=== PATIENT | male | born 1970 | race Caucasian/White ===

== ENCOUNTER 2020-03-03 12:11 | Emergency (ER) | payer SELFPAY ==
[~2020-03-03] VITALS: Ht 185.4 cm; Wt 63.5 kg
--- NOTE | 2020-03-03 13:17 | NUR ---
CALLED, NO ANSWER
[2020-03-03] MEDS ORDERED: ONDANSETRON HCL INJ 2MG/ML 2ML 2 MG/ML VIAL IV STA (14:04)
[2020-03-03] MEDS ORDERED: PANTOPRAZOLE 40 MG 10ML VIAL IV STA (14:04)
[2020-03-03] MEDS ORDERED: SODIUM CHLORIDE 0.9% 1000ML 1,000 ML IV STA (14:04)
[2020-03-03 14:13] LABS: BASOPHILS # (AUTO) 0.1 (0.0-0.1); BASOPHILS % 0.6 % (0.0-1.0); EOSINOPHILS % 0.3 % (0.0-6.0); HEMATOCRIT 46.1 % (38.2-49.6); HEMOGLOBIN 15.7 g/dL (14.0-18.0); LYMPHOCYTES % 31.6 % (18.0-39.1); MEAN CORPUSCULAR HEMOGLOBIN 30.5 pg (28-32); MEAN CORPUSCULAR HGB CONC 34.1 g/dL (31-35); MEAN CORPUSCULAR VOLUME 89.5 fL (81-99); MONOCYTES % 10.8 % (4.4-11.3); NEUTROPHILS # (AUTO) 5.3 (2.1-6.9); NEUTROPHILS % 55.6 % (38.7-80.0); PLATELET COUNT 256 x10e3/uL (140-360); RED BLOOD COUNT 5.15 x10e6/uL (4.3-5.7); RED CELL DISTRIBUTION WIDTH 12.9 % (11.7-14.4)
[2020-03-03] MEDS ORDERED: ASPIRIN 81 MG CHEW TAB PO ONE (14:15)
[2020-03-03 14:18] LABS: BILIRUBIN,URINE NEGATIVE (NEGATIVE); CLARITY,URINE CLEAR (CLEAR); COLOR,URINE YELLOW (YELLOW); KETONES,URINE 1+ (NEGATIVE); LEUKOCYTE ESTERASE ,URINE NEGATIVE (NEGATIVE); NITRITE,URINE NEGATIVE (NEGATIVE); PROTEIN,URINE DIPSTICK 1+ (NEGATIVE); URINE UROBILINOGEN 1 mg/dL (0.2 - 1)
[2020-03-03 14:29] LABS: BACTERIA,URINE MODERATE /HPF
[2020-03-03 14:32] LABS: INR 0.92; PARTIAL THROMBOPLASTIN TIME 24.1 seconds (23.8-35.5); PROTHROMBIN TIME 12.8 seconds (11.9-14.5)
--- NOTE | 2020-03-03 14:33 | Diagnostic Imaging Report ---
Examination: Single AP view of the chest. COMPARISON: None. INDICATION: Chest pain DISCUSSION: Lines/tubes: None. Lungs: The lungs are well inflated and clear. No pneumonia or pulmonary edema. Pleura: No pleural effusion or pneumothorax. Heart and mediastinum: The heart and the mediastinum are unremarkable. Bones and soft tissues: No acute bony abnormalities. IMPRESSION: 1. No acute cardiopulmonary abnormalities. Signed by: Dr. Clinton Murphy M.D. on 03/03/2020 2:29 PM
[2020-03-03 14:43] LABS: ALANINE AMINOTRANSFERASE 23 IU/L (0-55); ALBUMIN 3.9 g/dL (3.5-5.0); ALKALINE PHOSPHATASE 118 IU/L (40-150); ANION GAP 26.6 mmol/L (8-16); BLOOD UREA NITROGEN 9 mg/dL (7-26); BUN/CREATININE RATIO 8 (6-25); CALCIUM 9.6 mg/dL (8.4-10.2); CARBON DIOXIDE 19 mmol/L (22-29); CHLORIDE 90 mmol/L (98-107); CREATINE KINASE 131 IU/L (30-200); CREATININE, SERUM 1.14 mg/dL (0.72-1.25); EST GLOMERULAR FILTRATION RATE > 60 ML/MIN (60-); POTASSIUM 4.6 mmol/L (3.5-5.1); SODIUM 131 mmol/L (136-145)
[2020-03-03 14:45] LABS: GLUCOSE 523 mg/dL (74-118)
[2020-03-03] MEDS ORDERED: INSULIN REGULAR, HUMAN 100 UNIT/1 ML 3ML VIAL IV ONE (15:00)
[2020-03-03 17:01] LABS: ABG PCO2 39 mmHg (35-45); ABG PH 7.49 (7.35-7.45); ABG PO2 63 mmHg (80-105)
[2020-03-03 17:02] LABS: ABG HCO3 29 mmol/L (22-26); ABG TCO2 30
--- NOTE | 2020-03-03 19:02 | Emergency Department Note ---
History of Present Illnes History of Present Illness Chief Complaint: COVID PUI History of Present Illness This is a 50 year old male PATIENT HAS MULTIPLE ISSUES. INTERMITTENT CHEST PAIN SINCE YESTERDAY. HE HAS BEEN ON ETOH 30 DAY BINGE, HAS NOT EATEN X 5 DAYS, AND THROAT HURTS, CAN'T SWALLOW. VOMITING. 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 Any updates have been documented here. Past Medical History Recent Fever: No Clinical Suspicion of Infectio: No New/Unexplained Change in Ment: No Past Medical History: Diabetes Other Medical History: ETOH ABUSE ARTHRITIS Past Surgical History: None Social History Smoking Cessation: Current every day smoker Counseling Performed: Yes Alcohol Use: Daily Any Illegal Drug Use: No TB Exposure/Symptoms: No Physically hurt or threatened: No Family History Family history of heart diseas: No Other Any Pre-Existing Lines (PICC,: No Review of Systems Review of Systems Constitutional: Reports as per HPI EENTM: Reports no symptoms Cardiovascular: Reports as per HPI Respiratory: Reports no symptoms Gastrointestinal: Reports as per HPI Genitourinary: Reports no symptoms Musculoskeletal: Reports no symptoms Integumentary: Reports no symptoms Neurological: Reports no symptoms Psychological: Reports no symptoms Endocrine: Reports no symptoms Hematological/Lymphatic: Reports no symptoms Physical Exam Related Data Allergies: Coded Allergies: No Known Allergies (Unverified , 03/03/20) Triage Vital Signs Vital Signs Date Time Temp Pulse Resp B/P (MAP) Pulse Ox O2 Delivery O2 Flow Rate FiO2 03/03/20 13:26 97.4 86 18 130/73 100 Room Air Vital signs reviewed: Yes Physical Exam CONSTITUTIONAL Constitutional: Present well-developed, Present well-nourished HENT HENT: Present normocephalic, Present atraumatic, Present oropharynx clear/moist, Present nose normal HENT L/R: Present left ext ear normal, Present right ext ear normal EYES Eyes: Reports PERRL, Reports conjunctivae normal NECK Neck: Present ROM normal PULMONARY Pulmonary: Present effort normal, Present breath sounds normal CARDIOVASCULAR Cardiovascular: Present regular rhythm, Present heart sounds normal, Present capillary refill normal, Present normal rate GASTROINTESTINAL Abdominal: Present soft, Present nontender, Present bowel sounds normal GENITOURINARY Genitourinary: Present exam deferred SKIN Skin: Present warm, Present dry MUSCULOSKELETAL Musculoskeletal: Present ROM normal NEUROLOGICAL Neurological: Present alert, Present oriented x 3, Present no gross motor or sensory deficits PSYCHOLOGICAL Psychological: Present mood/affect normal, Present judgement normal Results Laboratory Result Diagram: 03/03/20 1330 03/03/20 1330 Laboratory Laboratory Tests Test 03/03/20 17:49 03/03/20 16:15 03/03/20 13:30 Bedside Glucose 203 mg/dL (70-120) Arterial Blood pH 7.49 (7.35-7.45) Arterial Blood Partial Pressure CO2 39 mmHg (35-45) Arterial Blood Partial Pressure O2 63 mmHg (80-105) Arterial Blood HCO3 29 mmol/L (22-26) Arterial Blood Total CO2 30 Arterial Blood Oxygen Saturation 94.0 % (95-98) Arterial Blood Base Excess 6.0 mmol/L (-2 - 3) FiO2 21 % White Blood Count 9.45 x10e3/uL (4.8-10.8) Red Blood Count 5.15 x10e6/uL (4.3-5.7) Hemoglobin 15.7 g/dL (14.0-18.0) Hematocrit 46.1 % (38.2-49.6) Mean Corpuscular Volume 89.5 fL (81-99) Mean Corpuscular Hemoglobin 30.5 pg (28-32) Mean Corpuscular Hemoglobin Concent 34.1 g/dL (31-35) Red Cell Distribution Width 12.9 % (11.7-14.4) Platelet Count 256 x10e3/uL (140-360) Neutrophils (%) (Auto) 55.6 % (38.7-80.0) Lymphocytes (%) (Auto) 31.6 % (18.0-39.1) Monocytes (%) (Auto) 10.8 % (4.4-11.3) Eosinophils (%) (Auto) 0.3 % (0.0-6.0) Basophils (%) (Auto) 0.6 % (0.0-1.0) Neutrophils # (Auto) 5.3 (2.1-6.9) Lymphocytes # (Auto) 3.0 (1.0-3.2) Monocytes # (Auto) 1.0 (0.2-0.8) Eosinophils # (Auto) 0.0 (0.0-0.4) Basophils # (Auto) 0.1 (0.0-0.1) Absolute Immature Granulocyte (auto 0.10 x10e3/uL (0-0.1) Prothrombin Time 12.8 seconds (11.9-14.5) Prothromb Time International Ratio 0.92 Activated Partial Thromboplast Time 24.1 seconds (23.8-35.5) Urine Color Yellow (YELLOW) Urine Clarity Clear (CLEAR) Urine pH 6.5 (5 - 7) Urine Specific [place] 1.010 (1.010-1.025) Urine Protein 1+ (NEGATIVE) Urine Glucose (UA) 3+ (NEGATIVE) Urine Ketones 1+ (NEGATIVE) Urine Blood Small (NEGATIVE) Urine Nitrite Negative (NEGATIVE) Urine Bilirubin Negative (NEGATIVE) Urine Urobilinogen 1 mg/dL (0.2 - 1) Urine Leukocyte Esterase Negative (NEGATIVE) Urine RBC 11-20 /HPF (0-5) Urine WBC None /HPF (0-5) Urine Epithelial Cells None /LPF (NONE) Urine Bacteria Moderate /HPF (NONE) Sodium Level 131 mmol/L (136-145) Potassium Level 4.6 mmol/L (3.5-5.1) Chloride Level 90 mmol/L (98-107) Carbon Dioxide Level 19 mmol/L (22-29) Anion Gap 26.6 mmol/L (8-16) Blood Urea Nitrogen 9 mg/dL (7-26) Creatinine 1.14 mg/dL (0.72-1.25) Estimat Glomerular Filtration Rate > 60 ML/MIN (60-) BUN/Creatinine Ratio 8 (6-25) Glucose Level 523 mg/dL (74-118) Calcium Level 9.6 mg/dL (8.4-10.2) Magnesium Level 2.0 MG/DL (1.3-2.1) Total Bilirubin 0.6 mg/dL (0.2-1.2) Aspartate Amino Transf (AST/SGOT) 23 IU/L (5-34) Alanine Aminotransferase (ALT/SGPT) 23 IU/L (0-55) Alkaline Phosphatase 118 IU/L (40-150) Creatine Kinase 131 IU/L (30-200) Creatine Kinase MB 1.80 ng/mL (0-5.0) Troponin I 0.060 ng/mL (0-0.300) B-Type Natriuretic Peptide 16.4 pg/mL (0-100) Total Protein 7.7 g/dL (6.5-8.1) Albumin 3.9 g/dL (3.5-5.0) Globulin 3.8 g/dL (2.3-3.5) Albumin/Globulin Ratio 1.0 (0.8-2.0) Ethyl Alcohol Level 60.7 mg/dL (0.0-10.0) Laboratory Tests Test 03/03/20 17:49 03/03/20 16:15 03/03/20 13:30 Bedside Glucose 203 mg/dL (70-120) Arterial Blood pH 7.49 (7.35-7.45) Arterial Blood Partial Pressure CO2 39 mmHg (35-45) Arterial Blood Partial Pressure O2 63 mmHg (80-105) Arterial Blood HCO3 29 mmol/L (22-26) Arterial Blood Total CO2 30 Arterial Blood Oxygen Saturation 94.0 % (95-98) Arterial Blood Base Excess 6.0 mmol/L (-2 - 3) FiO2 21 % White Blood Count 9.45 x10e3/uL (4.8-10.8) Red Blood Count 5.15 x10e6/uL (4.3-5.7) Hemoglobin 15.7 g/dL (14.0-18.0) Hematocrit 46.1 % (38.2-49.6) Mean Corpuscular Volume 89.5 fL (81-99) Mean Corpuscular Hemoglobin 30.5 pg (28-32) Mean Corpuscular Hemoglobin Concent 34.1 g/dL (31-35) Red Cell Distribution Width 12.9 % (11.7-14.4) Platelet Count 256 x10e3/uL (140-360) Neutrophils (%) (Auto) 55.6 % (38.7-80.0) Lymphocytes (%) (Auto) 31.6 % (18.0-39.1) Monocytes (%) (Auto) 10.8 % (4.4-11.3) Eosinophils (%) (Auto) 0.3 % (0.0-6.0) Basophils (%) (Auto) 0.6 % (0.0-1.0) Neutrophils # (Auto) 5.3 (2.1-6.9) Lymphocytes # (Auto) 3.0 (1.0-3.2) Monocytes # (Auto) 1.0 (0.2-0.8) Eosinophils # (Auto) 0.0 (0.0-0.4) Basophils # (Auto) 0.1 (0.0-0.1) Absolute Immature Granulocyte (auto 0.10 x10e3/uL (0-0.1) Prothrombin Time 12.8 seconds (11.9-14.5) Prothromb Time International Ratio 0.92 Activated Partial Thromboplast Time 24.1 seconds (23.8-35.5) Urine Color Yellow (YELLOW) Urine Clarity Clear (CLEAR) Urine pH 6.5 (5 - 7) Urine Specific [place] 1.010 (1.010-1.025) Urine Protein 1+ (NEGATIVE) Urine Glucose (UA) 3+ (NEGATIVE) Urine Ketones 1+ (NEGATIVE) Urine Blood Small (NEGATIVE) Urine Nitrite Negative (NEGATIVE) Urine Bilirubin Negative (NEGATIVE) Urine Urobilinogen 1 mg/dL (0.2 - 1) Urine Leukocyte Esterase Negative (NEGATIVE) Urine RBC 11-20 /HPF (0-5) Urine WBC None /HPF (0-5) Urine Epithelial Cells None /LPF (NONE) Urine Bacteria Moderate /HPF (NONE) Sodium Level 131 mmol/L (136-145) Potassium Level 4.6 mmol/L (3.5-5.1) Chloride Level 90 mmol/L (98-107) Carbon Dioxide Level 19 mmol/L (22-29) Anion Gap 26.6 mmol/L (8-16) Blood Urea Nitrogen 9 mg/dL (7-26) Creatinine 1.14 mg/dL (0.72-1.25) Estimat Glomerular Filtration Rate > 60 ML/MIN (60-) BUN/Creatinine Ratio 8 (6-25) Glucose Level 523 mg/dL (74-118) Calcium Level 9.6 mg/dL (8.4-10.2) Magnesium Level 2.0 MG/DL (1.3-2.1) Total Bilirubin 0.6 mg/dL (0.2-1.2) Aspartate Amino Transf (AST/SGOT) 23 IU/L (5-34) Alanine Aminotransferase (ALT/SGPT) 23 IU/L (0-55) Alkaline Phosphatase 118 IU/L (40-150) Creatine Kinase 131 IU/L (30-200) Creatine Kinase MB 1.80 ng/mL (0-5.0) Troponin I 0.060 ng/mL (0-0.300) B-Type Natriuretic Peptide 16.4 pg/mL (0-100) Total Protein 7.7 g/dL (6.5-8.1) Albumin 3.9 g/dL (3.5-5.0) Globulin 3.8 g/dL (2.3-3.5) Albumin/Globulin Ratio 1.0 (0.8-2.0) Ethyl Alcohol Level 60.7 mg/dL (0.0-10.0) Lab results reviewed: Yes Imaging Imaging results reviewed: Yes Procedures 12 Lead ECG Interpretation ECG Interpretation : ECG: ECG 1 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: Interpreted by ED physician Date: Mar 03, 2020 Time: 13:27 Rhythm: sinus rhythm Rate: normal (92) QRS axis: normal ST segments normal: Yes T waves normal: Yes Clinical Impression: normal ECG Assessment & Plan Medical Decision Making MDM CBC, CHEM, ECG, CARDIACS, ETOH, CXR, - EVAL STEMI/NSTEMI, ETHANOL INTOX, RENAL INSUFF, ELECTROLYTE ABNL, PNEUMONIA Reassessment Reassessment DC HOME, METFORMIN, ZOFRAN, F/U PCP TOMORROW, PUSH PO FLUIDS Assessment & Plan Final Impression: (1) Hyperglycemia (2) ETOH abuse Depart Disposition: HOME, SELF-CARE Last Vital Signs Date Time Temp Pulse Resp B/P (MAP) Pulse Ox O2 Delivery O2 Flow Rate FiO2 03/03/20 17:53 81 17 96 03/03/20 13:26 97.4 Room Air Medications in the ED Pantoprazole Sodium 40 mg ONCE STAT IV Last administered on 03/03/20at 14:46; Admin Dose 40 MG; Start 03/03/20 at 14:04; Stop 03/03/20 at 14:09; Status DC Ondansetron HCl 4 mg ONCE STAT IV Last administered on 03/03/20at 14:46; Admin Dose 4 MG; Start 03/03/20 at 14:04; Stop 03/03/20 at 14:09; Status DC Sodium Chloride 1,000 ml @ 0 mls/hr Q0M STAT IV Last administered on 03/03/20at 14:46; Admin Dose 1,000 MLS/HR; Start 03/03/20 at 14:04; Stop 03/03/20 at 14:06; Status DC Aspirin 81 mg PRN ONCE PO ; Start 03/03/20 at 14:15; Stop 03/03/20 at 14:16; Status DC Insulin Human Regular 10 unit ONCE ONCE IV Last administered on 03/03/20at 15:02; Admin Dose 10 UNIT; Start 03/03/20 at 15:00; Stop 03/03/20 at 15:01; Status DC AZIZA EUGENE MD Mar 03, 2020 19:02
[2020-03-03] MEDS ORDERED: SODIUM CHLORIDE 0.9% 1000ML 1,000 ML IV SCH (19:15)
--- NOTE | 2020-03-03 19:22 | NUR ---
NOTIFIED DR EUGENE PATIENT IS TACHYCARDIC AT 110, GIVEN ORDERS FOR ONE MORE LITER AND REPEAT BMP
[2020-03-03 20:19] LABS: ANION GAP 16.1 mmol/L (8-16); BLOOD UREA NITROGEN 13 mg/dL (7-26); BUN/CREATININE RATIO 15 (6-25); CALCIUM 8.1 mg/dL (8.4-10.2); CARBON DIOXIDE 24 mmol/L (22-29); CHLORIDE 100 mmol/L (98-107); CREATININE, SERUM 0.88 mg/dL (0.72-1.25); EST GLOMERULAR FILTRATION RATE > 60 ML/MIN (60-); GLUCOSE 267 mg/dL (74-118); POTASSIUM 4.1 mmol/L (3.5-5.1); SODIUM 136 mmol/L (136-145)
--- NOTE | 2020-03-03 20:26 | NUR ---
DR EUGENE CALLED WITH NEW RESULTS OF GAP AND GLUCOSE, PATIENT VERBALIZES FEELING BETTER AND WANTING TO GO HOME. DR EUGENE STATES OK TO GO HOME.
[2020-03-03 20:28] VITALS: BP 138/72
== END 2020-03-03 20:39 | disposition home or self-care (01) ==
LOC: ER 12:39
DX: E11.65 Type 2 diabetes mellitus with hyperglycemia (principal); F10.10 Alcohol abuse, uncomplicated; F17.210 Nicotine dependence, cigarettes, uncomplicated
CPT/HCPCS: 36415; 36600; 71045; 80048; 80053; 80320; 81001; 82550; 82553; 82805; 82948; 83735; 83880; 84484; 85025; 85610; 85730; 87086; 99284; C9113; J1817; J2405; J7030